=== PATIENT | female | born 1985 | race Caucasian/White ===

== ENCOUNTER 2016-12-12 07:30 | Inpatient (IN) | payer OTHER ==
[~2016-12-12] VITALS: Ht 159 cm; Wt 72.6 kg
[~2016-12-12 07:30] MED LIST: ASCO500C6 PO; CALC1TAB15 PO; DSS100 PO; FERR1TAB45 PO; IBUP-1547 PO; PNV1TABL54 PO
[2016-12-12] MEDS ORDERED: OXYTOCIN 30 UNITS/LACT RINGERS 500 ML IV ONE (07:54)
[2016-12-12] MEDS ORDERED: RINGERS SOLUTION,LACTATED 1,000 ML IV PRN (07:54)
[2016-12-12] MEDS ORDERED: CITRIC ACID/SODIUM CITRATE 30 ML SOLUTION UDCUP PO PRN (08:00)
[2016-12-12] MEDS ORDERED: OXYGEN THERAPY IH SCH (08:00)
[2016-12-12] MEDS ORDERED: METOCLOPRAMIDE HCL 5 MG/ML 2 ML VIAL IVP PRN (08:00)
[2016-12-12] MEDS ORDERED: FentaNYL CITRATE-PF 100 MCG/2 ML VIAL IVP PRN (08:00)
[2016-12-12] MEDS ORDERED: LIDOCAINE HCL/PF 1% 30 ML VIAL INJ PRN (08:00)
[2016-12-12] MEDS ORDERED: RINGERS SOLUTION,LACTATED 1,000 ML IV ONE (08:05)
[2016-12-12] MEDS: RINGERS SOLUTION,LACTATED 1,000 ML IV SCH ×2 (08:30→12:29)
[2016-12-12 08:33] LABS: BASOPHILS % (AUTO) 0.2 % (0.0-2.0); EOSINOPHILS % (AUTO) 0.1 % (1.0-6.0); HEMATOCRIT 36.7 % (36-46); HEMOGLOBIN 12.3 g/dL (12.0-16.0); LYMPHOCYTES # (AUTO) 0.9 K/uL (1.0-4.8); LYMPHOCYTES % (AUTO) 8.7 % (22.0-44.0); MEAN CORPUSCULAR HEMOGLOBIN 32.4 pg (26.0-34.0); MEAN CORPUSCULAR HGB CONC 33.5 G/dL (31.0-37.0); MEAN CORPUSCULAR VOLUME 97 fL (80-100); MONOCYTES # (AUTO) 0.4 K/uL (0.1-1.0); MONOCYTES % (AUTO) 3.8 % (2.0-9.0); NEUTROPHILS # (AUTO) 9.3 K/uL (1.8-7.7); RED BLOOD CELL COUNT(AUTO) 3.79 MIL/uL (4.00-5.20); WHITE BLOOD COUNT (AUTO) 10.6 K/uL (4.5-11.0)
[2016-12-12 08:35] VITALS: BP 105/70
[2016-12-12 08:35] LABS: NEUTROPHILS % (AUTO) 87.2 % (40.0-70.0)
[2016-12-12] MEDS ORDERED: BUPIVACAINE HCL/PF 0.25% 10 ML VIAL ONE (09:05)
[2016-12-12] MEDS ORDERED: FentaNYL/BUPIV 0.125%/NS/PF 200 ML ED ONE (09:06)
[2016-12-12 09:13] LABS: RBC MORPHOLOGY COMMENT NORMAL RBC MORPH
[2016-12-12] MEDS ORDERED: OXYTOCIN 30 UNITS/LACT RINGERS 500 ML IV PRN ×2 (13:32→13:45)
[2016-12-12] MEDS ORDERED: GLYCERIN/WITCH HAZEL LEAF 40 PADS JAR TP PRN (17:00)
[2016-12-12] MEDS ORDERED: IBUPROFEN 600 MG TABLET PO PRN (17:00)
[2016-12-12] MEDS ORDERED: BENZOCAINE 20%/MENTHOL 56 GM SPRAY CANISTER TP PRN (17:00)
[2016-12-12] MEDS ORDERED: ACETAMINOPHEN/CODEINE 300-30 MG TABLET PO PRN ×2 (17:00)
[2016-12-12] MEDS ORDERED: LANOLIN 7 GM OINTMENT TP PRN (17:00)
[2016-12-12] MEDS: SENNA/DOCUSATE SODIUM 187-50 MG TABLET PO SCH (21:08)
[2016-12-12] MEDS: MAGNESIUM HYDROXIDE SUSPENSION 30 ML UDCUP PO SCH (21:08)
[2016-12-13] MEDS: SENNA/DOCUSATE SODIUM 187-50 MG TABLET PO SCH (09:09)
[2016-12-13] MEDS: MAGNESIUM HYDROXIDE SUSPENSION 30 ML UDCUP PO SCH (09:09)
[2016-12-13] MEDS ORDERED: IBUP-2070 PO (09:44)
[2016-12-13] MEDS ORDERED: DSS100 PO (09:45)
[2016-12-13] MEDS ORDERED: LIDOCAINE HCL/PF 2% 5 ML VIAL ONE (17:47)
[2016-12-13] MEDS ORDERED: FentaNYL/BUPIV 0.125%/NS/PF 0 ML ED ONE (17:48)
== END 2016-12-13 16:35 | disposition home or self-care (01) | DRG 775 ==
LOC: 4S 07:30 → OBSVTOIN 07:30
PROVIDERS: ADMIT Obstetrics & Gynecology; ATTEND Obstetrics & Gynecology
PROC: 10907ZC Drainage of Amniotic Fluid, Therapeutic from Products of Conception, Via Natural or Artificial Opening (ICD-10-PCS; principal; 2016-12-12)
PROC: 10E0XZZ Delivery of Products of Conception, External Approach (ICD-10-PCS; 2016-12-12)
PROC: 0KQM0ZZ Repair Perineum Muscle, Open Approach (ICD-10-PCS; 2016-12-12)
PROC: 0UQMXZZ Repair Vulva, External Approach (ICD-10-PCS; 2016-12-12)
PROC: 3E0S3CZ (ICD-10-PCS; 2016-12-12)
PROC: 00HU33Z Insertion of Infusion Device into Spinal Canal, Percutaneous Approach (ICD-10-PCS; 2016-12-12)
DX: O70.1 Second degree perineal laceration during delivery (principal); Z37.0 Single live birth; O71.82 Other specified trauma to perineum and vulva; Z3A.39 39 weeks gestation of pregnancy
CPT/HCPCS: J2590; J3010; J3490; J7120